=== PATIENT | female | born 1945 | race Caucasian/White ===

== ENCOUNTER 2017-05-26 12:03 | Emergency (ER) | payer MEDICARE, OTHER ==
[2017-05-26] MEDS ORDERED: HYDROcodone/Acetaminophen 7.5/325 mg Tablet ONE (13:25)
--- NOTE | 2017-05-26 14:26 | RAD ---
3 VIEWS OF THE RIGHT SHOULDER: Date: 05/26/17 COMPARISON: None. HISTORY: Right-sided shoulder pain for 2 weeks. FINDINGS: There is degenerative change involving the right AC joint. No evidence for glenohumeral joint disloca tion. No widening of the right AC or CC interspace. No fracture. IMPRESSION: Degenerative change of the right AC joint. No displaced fracture or evidence of dislocation seen. POS: [facility]
== END 2017-05-26 14:09 | disposition home or self-care (01) ==
LOC: ERS 12:03
DX: M75.91 Shoulder lesion, unspecified, right shoulder (principal); E03.9 Hypothyroidism, unspecified; E78.5 Hyperlipidemia, unspecified; F41.9 Anxiety disorder, unspecified; Z85.3 Personal history of malignant neoplasm of breast; Z92.21 Personal history of antineoplastic chemotherapy; Z87.891 Personal history of nicotine dependence

== ENCOUNTER 2017-12-08 14:00 | Outpatient (CLI) | payer MEDICARE, OTHER ==
[2017-12-08 15:04] LABS: Bilirubin Negative (Negative); Blood, Urine Negative (Negative); Clarity CLEAR (Clear); Glucose, Urine (Dipstick) Negative (Negative); Leukocyte Small (Negative); Nitrite Negative (Negative); Protein, Urine (Dipstick) Negative (Neg-Trace); Specific Gravity, Urine 1.025 (1.002-1.036); Urobilinogen 0.2 mg/dL (0.2-1.0); pH, Urine 5.5 (5.0-9.0)
[2017-12-08 15:05] LABS: #Eosinphils 0.1 thou/uL (0.0-0.7); #Lymphocytes 2.1 thou/uL (1.20-3.40); #Monocytes 0.5 thou/uL (0.11-0.59); #Neutrophils 3.6 thou/uL (1.40-6.50); %Basophils 0.2 % (0.0-1.0); %Eosinophils 2.2 % (0.0-10.0); %Monocytes 7.7 % (0.0-10.0); %Neutrophils 56.9 % (42.0-75.0); Hemoglobin 13.5 g/dL (12.0-16.0); Mean Corpuscular Hemoglobin 31.1 pg (27.0-31.0); Mean Corpuscular Volume 91.6 fl (81.0-99.0); Mean Platelet Volume 7.2 fL (7.4-10.4); Platelet Count 202 thou/uL (130-400); RBC Distribution Width 12.2 % (11.5-14.5); Red Blood Cell (RBC) Count 4.33 mill/uL (4.20-5.40); White Blood Cell (WBC) Count 6.4 thou/uL (4.8-10.8)
[2017-12-08 15:06] LABS: Bacteria/HPF None Seen HPF (None Seen); Hyaline Casts/LPF 0-3 HYALINE CAST LPF (0-3 Hyaline); Pathc Cast-AUWi Flag 0.43 (0-2.49); RBC/HPF 0-3 HPF (0-3); Squamous Epithelial 0-3 HPF (0-3)
[2017-12-08 15:23] LABS: Anion Gap 15 mmol/L (10-20); BUN (Urea Nitrogen) 15 mg/dL (9.8-20.1); Calc. Creatinine Clearance 0 mL/min (70-130); Calcium 9.7 mg/dL (7.8-10.44); Carbon Dioxide 25 mmol/L (23-31); Chloride 106 mmol/L (98-107); Estimated GFR-MDRD 77; Glucose 98 mg/dL (83-110); Potassium 4.2 mmol/L (3.5-5.1); Sodium 142 mmol/L (136-145)
--- NOTE | 2017-12-08 15:42 | RAD ---
CHEST TWO VIEWS: 12/08/17 HISTORY: Preop. COMPARISON: 03/29/05. FINDINGS: Cardiac silhouette and pulmonary vasculature are unremarkable. Mediastinum is midline with aortic aki cification. No confluent air space consolidation, pneumothorax or pleural fluid. Metallic clips overl ie the right breast. IMPRESSION: Atherosclerosis. No active cardiopulmonary abnormalities are otherwise demonstrated. POS: [facility]
== END 2017-12-08 14:01 | disposition home or self-care (01) ==
LOC: LABBT 14:00
PROVIDERS: ATTEND Orthopaedic Surgery
DX: Z01.818 Encounter for other preprocedural examination (principal); M17.12 Unilateral primary osteoarthritis, left knee; I70.0 Atherosclerosis of aorta
CPT/HCPCS: 71046; 80048; 81001; 85025; 85610; 87081; 93005; 93010

== ENCOUNTER 2017-12-15 11:38 | Outpatient (CLI) | payer MEDICARE, OTHER | END 2017-12-15 11:39 | disposition home or self-care (01) | LOC: LABBT 11:38 | PROVIDERS: ATTEND Orthopaedic Surgery | DX: Z01.818 Encounter for other preprocedural examination (principal); M17.12 Unilateral primary osteoarthritis, left knee | CPT/HCPCS: 86850; 86900; 86901 ==

== ENCOUNTER 2017-12-20 08:18 | Inpatient (IN) | payer MEDICARE, OTHER ==
[2017-12-08 14:11] VITALS: BMI 27.4
[2017-12-20] MEDS ORDERED: Sodium Chloride 0.9% 100 ML ONE (09:26)
[2017-12-20] MEDS ORDERED: CEFAZOLIN/Water 2 GM/20 ML SYRINGE ONE (09:26)
[2017-12-20] MEDS ORDERED: Fentanyl 100 MCG/2 ML VIAL ONE ×5 (09:37→13:57)
[2017-12-20] MEDS ORDERED: Midazolam HCl 2 mg/2 ml Vial ONE (09:37)
[2017-12-20] MEDS ORDERED: Ondansetron HCl/PF 4 MG/2 ML Vial IVP PRN ×3 (09:46→11:16)
[2017-12-20] MEDS ORDERED: Fentanyl 100 MCG/2 ML VIAL IV PRN (09:46)
[2017-12-20] MEDS ORDERED: Zolpidem Tartrate 5 MG TAB PO PRN ×2 (09:46→10:30)
[2017-12-20] MEDS ORDERED: Ketorolac Tromethamine 30 MG/ML VIAL IVP PRN (09:46)
[2017-12-20] MEDS ORDERED: Promethazine HCl 25 MG/ML VIAL IM PRN ×3 (09:46→11:16)
[2017-12-20] MEDS ORDERED: Bupivacaine 0.5% 50 ML in Sodium Chloride 0.9% 50 ML NERVE BLCK SCH (09:46)
[2017-12-20] MEDS ORDERED: traMADol HCl 50 MG TAB PO PRN ×2 (09:46→10:30)
[2017-12-20] MEDS ORDERED: HYDROcodone/Acetaminophen 7.5/325 mg Tablet PO PRN (09:47)
[2017-12-20] MEDS ORDERED: diphenhydrAMINE 25 MG CAP PO PRN (10:30)
[2017-12-20] MEDS ORDERED: Tranexamic Acid 1,000 MG in Sodium Chloride 0.9% 100 ML IVPB SCH (10:30)
[2017-12-20] MEDS ORDERED: Acetaminophen 325 MG TAB PO PRN (10:30)
[2017-12-20] MEDS ORDERED: Fentanyl 100 MCG/2 ML VIAL SLOW IVP PRN (10:30)
[2017-12-20] MEDS ORDERED: HYDROcodone/Acetaminophen 10/325 mg Tablet PO PRN ×2 (10:30)
[2017-12-20] MEDS ORDERED: Promethazine HCl 25 MG/ML VIAL SLOW IVP PRN (11:16)
[2017-12-20] MEDS ORDERED: PROPOFOL 200 MG/20 ML VIAL ONE (12:47)
[2017-12-20] MEDS ORDERED: Ondansetron HCl/PF 4 MG/2 ML Vial ONE (12:47)
[2017-12-20] MEDS ORDERED: Dexamethasone 20 MG/5 ML VIAL ONE (12:47)
--- NOTE | 2017-12-20 12:49 | OP ---
DATE OF PROCEDURE: 12/20/2017 PREOPERATIVE DIAGNOSIS: Degenerative joint disease left knee. POSTOPERATIVE DIAGNOSIS: Degenerative joint disease left knee. SURGEON: Neftaly Israel M.D. LUMBER RACKER: Cirilo Young PA-C. BLOOD LOSS: Minimal. SPECIMEN: None. DRAINS: None. COMPLICATIONS: None. TOURNIQUET TIME: 46 minutes. IMPLANTS USED: [place] [employer] 3 femur, 3 tibia, 9 mm CSX3 polyethylene, and A29 patella. TITLE OF PROCEDURE: Left total knee arthroplasty. PROCEDURE IN DETAIL: After informed consent was obtained in the preoperative holding area. The david ent was taken to the operative suite where general anesthesia was induced. Once adequate level of ge neral anesthesia was obtained, the patient was positioned and a well-padded tourniquet was placed bib und the left proximal thigh. The left lower extremity was then prepped and draped in the usual steri le fashion. Prior to exsanguination, a time out was called and all members of the surgical team agre ed upon site, surgeon, and patient. The extremity was then exsanguinated and the tourniquet was rais ed. A midline longitudinal incision was then made directly over the patella extending two fingerbrea dths above the superior pole of the patella and two fingerbreadths inferior to the inferior patellar pole of the patella. Deeper subcutaneous layers were dissected sharply and local bleeding was contro lled with Bovie electrocautery. A quad tendon longitudinal split was then made sharply and a median parapatellar arthrotomy was carried out both sharp and with Bovie electrocautery, carried down to one fingerbreadth medial to the tibial tubercle. The knee was then placed into flexion and the patella was everted nicely, and a copious fat pad ectomy was performed allowing for greater exposure of the t ibia. The computer-assisted distal femoral fiducial was then placed and pinned firmly, and the dista l femoral cutting guide was pinned firmly into place. The oscillating saw was then used to remove th e appropriate amount of bone. The 4-in-1 cutting block was then placed on the distal femur and the o scillating saw was used to remove the appropriate amount of bone off of the anterior, posterior, and chamfer cuts. After completion of bone cuts, the anterior cruciate ligament was resected sharply and the posterior cruciate ligament retractor was placed and the tibia was subluxed for better exposure. Partial meniscectomies were carried out, and the tibial computer-assisted fiducial was pinned, and the cutting guide was placed. Oscillating saw was then used to remove the bone with Hohmann retracto rs used to take care and protect the collateral ligaments. After the tibial resection was performed, a laminar manager nuclear was placed in between the freshened bone cuts. The knee placed at 90 degrees and further bilateral meniscectomies were carried out, and the curved osteotome and curettage was used t o remove any excess bone spurs in the posterior compartment. The trial femoral component, tibial bas eplate were placed with the appropriate polyethylene trial insert with an appropriate polyethylene sp acer and patellar button. The knee was taken through full range of motion with flexion and extension from 0-90 degrees and patellar broach squarely in the trochlea without any squinting or subluxation noted. The knee was also stable to varus and valgus stressing at 0, 15, 45, and 90 degrees of flexio n. The drawer was negative. All trial components were then removed and the keel punch was used to pr ovide the appropriate defect in the tibia with a mallet. The freshened bone cuts were copiously irri gated with pulsatile lavage of about 1-1/2 liters to remove all excess debris. The freshened bone cu ts were then dried and with suction and lap sponge. The knee was placed in flexion and retractors we re placed to provide access to all bone cuts. Tobramycin impregnated methyl methacrylate cement was then placed on the freshened bone cuts and implants which were malleted firmly into place. Curettage and Paloma elevators were used to remove any excess bone cement. The knee was placed into full exten radha and the patellar button was placed under compression, and the cement was allowed to cure. Once completed, the components were again taken through full range of motion and copious irrigation of the knee was carried out with another liter of normal saline. All components were inspected fully with full range of motion and varus and valgus stressing. There was no laxity noted and full extension was observed clinically. Primary closure was accomplished with #2 interrupted Vicryl stitch of the arth rotomy defect. This was oversewn with a #2 running Quill barbed stitch. The gravitational platelet system was then injected into the arthrotomy prior to closure. The subcutaneous layer was then close d with a running 0 barbed Monocryl stitch and skin closure accomplished with a running subcuticular 3 -0 Monocryl barbed Quill stitch and augmented with cement on the skin. Tourniquet was lowered. Good spontaneous return of distal pulses was noted clinically and a sterile dressing was applied to the i ncision. The procedure was terminated without any complications. The patient was awakened in the op erative suite and the tourniquet was removed, and the patient was taken to the recovery room in stabl e condition.
[2017-12-20] MEDS ORDERED: Bupivacaine 0.25% HCL 30 ML VIAL ONE (13:02)
[2017-12-20] MEDS ORDERED: Bupivacaine HCl 0.5%/Epinephrine 1:200,000/PF 30 ml Vial ONE (13:02)
[2017-12-20] MEDS ORDERED: Ketorolac Tromethamine 30 MG/ML VIAL ONE (13:08)
[2017-12-20] MEDS ORDERED: HYDROmorphone 0.5 MG/0.5 ML SYRINGE ONE (13:54)
--- NOTE | 2017-12-20 13:55 | RAD ---
THREE VIEWS LEFT KNEE: Date: 12-20-17 History: Left total knee prosthesis. FINDINGS: Post-surgical changes related to placement of a left total knee prosthesis are noted. No hardware com plication is seen. Subcutaneous edema is seen about the knee. There is no fracture or dislocation see n. IMPRESSION: Post-surgical changes related to recent placement of left total knee prosthesis. POS: [facility]
[2017-12-20] MEDS: Sodium Chloride 0.9% 1,000 ML IV SCH ×2 (15:14→21:52)
[2017-12-20] MEDS: HYDROcodone/Acetaminophen 7.5/325 mg Tablet PO PRN ×2 (15:21→21:54)
[2017-12-20] MEDS: CEFAZOLIN/Water 2 GM/20 ML SYRINGE SLOW IVP SCH (17:52)
[2017-12-20] MEDS: traMADol HCl 50 MG TAB PO PRN (18:11)
[2017-12-20] MEDS: Aspirin 81 mg Enteric Coated Tablet PO SCH (20:50)
[2017-12-20] MEDS: Famotidine 20 MG TAB PO SCH (20:50)
[2017-12-20] MEDS: Gabapentin 300 MG CAP PO SCH (20:50)
[2017-12-20] MEDS: cycloSPORINE 0.05% Ophthalmic Droperette EA EYE SCH ×2 (20:53→21:52)
--- NOTE | 2017-12-21 01:15 | CON ---
PRIMARY CARE PHYSICIAN: Dr. Ling PRIMARY TEAM: Dr. Jhonatan Clayton. REASON FOR CONSULTATION: Medical management. HISTORY OF PRESENT ILLNESS: This is a 72-year-old white female with severe osteoarthritis of the lef t knee who comes in for left total knee arthroplasty. Patient had surgery earlier today and is recup erating now in the room. She finished working with physical therapy and is doing well. No specific complaints at this time. PAST MEDICAL HISTORY: 1. Hyperlipidemia. 2. Hypothyroidism per the chart from 2013. The patient states that she does not know about this karma gnosis and is not taking any medicine currently. 3. Gastroesophageal reflux disease. PAST SURGICAL HISTORY: 1. Partial colectomy at age 40 for colon cancer without any spread or need for radiation or chemo. 2. Right breast lumpectomy 4 years ago for breast cancer followed by radiation and chemotherapy. 3. Bilateral cataract repair. SOCIAL HISTORY: The patient is . She does not smoke or use alcohol or illicit drugs. FAMILY HISTORY: Father had coronary artery disease and a CABG and macular degeneration. Mother had coronary artery disease and severe arthritis. PAST PSYCHIATRIC HISTORY: Depression. ALLERGIES: PREDNISONE causes tachycardia and upset stomach. CURRENT MEDICATIONS: 1. Glucosamine, vitamin D3 caplet 1 cap daily. 2. Fish oil 1000 mg capsule 2 caps daily. 3. Atorvastatin 40 mg daily. 4. Restasis 1 drop in each eye twice a day. 5. Flonase 2 sprays in each nostril daily. 6. Gabapentin 300 mg twice a day. 7. Prevacid 30 mg daily as needed. 8. Levothyroxine 50 mcg daily. 9. Loratadine 10 mg daily. 10. Ranitidine 150 mg twice a day as needed. 11. Zoloft 100 mg daily. 12. CoQ10 100 mg daily. REVIEW OF SYSTEMS: Constitutional: No fevers, no chills. Eyes: No double vision or blurred vision . ENT: She does have some seasonal allergy congestion and drainage. No sore throat. Cardiovascula r: No chest pain, no palpitations, or racing heart. Pulmonary: No coughing, wheezing, or shortness of breath. Gastrointestinal: No abdominal pain, no nausea or vomiting. No diarrhea or constipatio n. Genitourinary: No dysuria or hematuria. Musculoskeletal: She has arthritic pain in her left kn ee and also in her right shoulder. Skin: No rashes or lesions she has noted. Neurologic: No numbn ess, tingling, or focal weakness. PHYSICAL EXAMINATION: VITAL SIGNS: Blood pressure 136/75, pulse 86, respirations 16, O2 sat 93% on 2 liters, temperature 9 7.9. GENERAL: This is a well-developed elderly white female in no apparent distress. HEENT: Pupils equal, round, and reactive to light. Oropharynx clear without lesions, erythema or ex udate. NECK: Supple. No lymphadenopathy, no thyroid nodules or enlargement. HEART: Regular rate and rhythm. No murmurs, rubs, or gallops. LUNGS: Clear to auscultation bilaterally. No wheezes, crackles, or rhonchi. ABDOMEN: Soft, nontender to palpation, normoactive bowel sounds. No hepatosplenomegaly or other mas ses. EXTREMITIES: No clubbing, cyanosis, or edema. She does have a brace on her left knee and post-surgi aki dressing. SKIN: No rashes or lesions noted. NEUROLOGIC: She has intact strength in all extremities. No facial droop. LABORATORY DATA: CBC done 12 days ago was within normal limits. Coagulation profile was normal and her basic metabolic panel was normal. ASSESSMENT: 1. Severe osteoarthritis of the left knee, status post total knee arthroplasty, Dr. Israel is the olivares rgeon. 2. Hyperlipidemia. Resume patient's atorvastatin. 3. Hypothyroidism. Resume patient's levothyroxine. 4. Gastroesophageal reflux disease. Continue patient's PPI as needed. 5. Deep venous thrombosis prophylaxis as per surgical team. 6. Code status. I did discuss with the patient. She is a FULL CODE. Should she be incapacitated, her would be her medical power of estate attorney, his name is Reggie Perry.
[2017-12-21] MEDS: CEFAZOLIN/Water 2 GM/20 ML SYRINGE SLOW IVP SCH (02:49)
[2017-12-21] MEDS: HYDROcodone/Acetaminophen 7.5/325 mg Tablet PO PRN ×3 (03:50→13:30)
[2017-12-21 05:19] LABS: Hemoglobin 11.7 g/dL (12.0-16.0); Mean Corpuscular HGB CONC 33.1 g/dL (32.0-36.0); Mean Corpuscular Hemoglobin 30.7 pg (27.0-31.0); Mean Corpuscular Volume 92.7 fL (78.0-98.0); Mean Platelet Volume 7.1 fL (7.4-10.4); Platelet Count 184 thou/uL (130-400); RBC Distribution Width 12.2 % (11.5-14.5); Red Blood Cell (RBC) Count 3.81 mill/uL (4.20-5.40); White Blood Cell (WBC) Count 10.1 thou/uL (4.8-10.8)
[2017-12-21] MEDS: Ketorolac Tromethamine 30 MG/ML VIAL IVP SCH ×4 (06:26→23:45)
[2017-12-21] MEDS: Levothyroxine Sodium 50 MCG TAB PO SCH (06:27)
[2017-12-21] MEDS: Sodium Chloride 0.9% 1,000 ML IV SCH ×2 (07:33→15:21)
--- NOTE | 2017-12-21 09:04 | PRG ---
DATE OF SERVICE: 12/21/2017 SUBJECTIVE: Sarahi is a 72-year-old female postop day #1 left total knee arthroplasty by Dr. Israel. She is comfortable this morning and reports very little pain. She is tolerating regular p.o. intak e and voiding as well. She is able to ambulate back and forth to the bathroom with standby assist. OBJECTIVE: VITAL SIGNS: Temperature 98.1, pulse 82, respiratory rate 16, O2 saturation on room air is 92%, bloo d pressure 115/74. GENERAL: She is alert and oriented to person, place, time, and situation. Grossly nonfocal. EXTREMITIES: She is neurovascularly intact in both lower extremities. Hemoglobin and hematocrit are 11.7 and 35.3. ASSESSMENT: 1. A 72-year-old female postop day #1 left total knee arthroplasty. 2. Mild postoperative hemorrhagic anemia. PLAN: Continue current management, discharge tomorrow.
[2017-12-21] MEDS: Senokot S 8.6-50 MG TAB PO SCH ×2 (09:09→21:21)
[2017-12-21] MEDS: Aspirin 81 mg Enteric Coated Tablet PO SCH ×2 (09:10→21:21)
[2017-12-21] MEDS: Ubidecarenone 50 MG CAP PO SCH (09:10)
[2017-12-21] MEDS: Famotidine 20 MG TAB PO SCH ×2 (09:10→21:20)
[2017-12-21] MEDS: Loratadine 10 MG TAB PO SCH (09:10)
[2017-12-21] MEDS: Multivitamin W/ Minerals 1 TAB PO SCH (09:10)
[2017-12-21] MEDS: Ferrous Gluconate 324 MG TAB PO SCH ×2 (09:11→17:35)
[2017-12-21] MEDS: Gabapentin 300 MG CAP PO SCH ×2 (09:11→21:21)
[2017-12-21] MEDS: Atorvastatin Calcium 40 MG TAB PO SCH (09:11)
[2017-12-21] MEDS: cycloSPORINE 0.05% Ophthalmic Droperette EA EYE SCH ×2 (09:17→21:46)
[2017-12-21] MEDS: Fluticasone Propionate Nasal Spray 16 gm Bottle NASAL SCH (09:17)
--- NOTE | 2017-12-21 09:27 | PDOC.PN ---
- Subjective Encounter Start Date: 12/21/17 Encounter Start Time: 12:30 Subjective: Patient without complaint today. No N/V. Doing well with PT. - Objective Resuscitation Status: Resuscitation Status FULL:Full Resuscitation MAR Reviewed: Yes Vital Signs & Weight: Vital Signs (12 hours) Temp Pulse Resp BP BP Pulse Ox 12/21/17 07:40 98.1 F 82 16 115/74 92 L 12/21/17 03:10 97.9 F 82 16 117/76 93 L 12/20/17 23:58 98 F 85 16 120/66 91 L Weight Weight 160 lb I&O: 12/20/17 12/21/17 12/22/17 06:59 06:59 06:59 Intake Total 400 1960 Output Total 2300 1850 Balance -1900 110 Result Diagrams: 12/21/17 04:32 Phys Exam - Physical Examination Constitutional: NAD HEENT: moist MMs Respiratory: no wheezing, no rales, no rhonchi Cardiovascular: RRR, no significant murmur Gastrointestinal: soft, non-tender, positive bowel sounds left knee with dressing c/d/i Neurological: non-focal, moves all 4 limbs Psychiatric: normal affect, A&O x 3 Dx/Plan (1) Status post total left knee replacement Code(s): Z96.652 - PRESENCE OF LEFT ARTIFICIAL KNEE JOINT Status: Acute (2) Hyperlipidemia Code(s): E78.5 - HYPERLIPIDEMIA, UNSPECIFIED Status: Chronic (3) Hypothyroidism Code(s): E03.9 - HYPOTHYROIDISM, UNSPECIFIED Status: Chronic (4) GERD (gastroesophageal reflux disease) Code(s): K21.9 - GASTRO-ESOPHAGEAL REFLUX DISEASE WITHOUT ESOPHAGITIS Status: Chronic - Plan cont current plan of care, PT/OT * . - Discharge Day Encounter end time: 12:40
--- NOTE | 2017-12-21 14:28 | RAD ---
FOUR VIEWS OF THE LEFT KNEE: Comparison: None. History: Left knee pain after a fall. FINDINGS: Four views of the left knee shows no evidence of acute fracture or dislocation. No knee effusion is s een. Mild diffuse soft tissue swelling is seen. There appears to be air in the soft tissues. IMPRESSION: There appears to be air in the soft tissues. This could be secondary to infectious process or an open wound. Correlate with physical examination and white blood cell count. POS: [facility]
--- NOTE | 2017-12-21 17:17 | PRG ---
DATE OF SERVICE: 12/21/2017 TIME: 13:50 p.m. Was called to bedside by nursing staff. The patient apparently attempted to get out of a chair and t ried to get back in bed alone. Her was witnessed to the incident unfortunately and he was un able to catch her as she collapsed to the ground. She did have a little hyperflexion of the knee and upon my arrival, she had some bleeding and strikethrough under the dressing, but not profound. She was assisted back into the chair and ultimately back into bed by nursing staff. PHYSICAL EXAMINATION: She cannot straight leg raise, but her femoral block still intact. I do not f eel defect at the quadriceps tendon. Removal of the bandage reveals small opening of the superior as pect of the wound and little bit in the inferior aspect. I was able to get some Steri-Strips around this and pull the skin together effectively. No active bleeding was noted. She is neurovascularly i ntact in the extremity. IMAGING STUDIES: Four views of left knee demonstrate hardware to be intact. No periprosthetic fract ures are identified. ASSESSMENT: 1. A 72-year-old white female postop day #1 left total knee arthroplasty. 2. Status post unassisted witnessed fall. PLAN: Steri-Strips were applied to redress the wound. Notified Dr. Israel and we will reevaluate th e patient in the morning. For now, would like to reevaluate her quadriceps tendon when her block wea rs off.
[2017-12-22] MEDS: Sodium Chloride 0.9% 1,000 ML IV SCH ×3 (05:04→23:54)
[2017-12-22 05:39] LABS: Hemoglobin 10.9 g/dL (12.0-16.0); Mean Corpuscular HGB CONC 33.2 g/dL (32.0-36.0); Mean Corpuscular Hemoglobin 30.7 pg (27.0-31.0); Mean Corpuscular Volume 92.5 fL (78.0-98.0); Mean Platelet Volume 6.9 fL (7.4-10.4); Platelet Count 164 thou/uL (130-400); RBC Distribution Width 12.3 % (11.5-14.5); Red Blood Cell (RBC) Count 3.56 mill/uL (4.20-5.40)
[2017-12-22] MEDS: Levothyroxine Sodium 50 MCG TAB PO SCH (05:58)
[2017-12-22] MEDS: Ketorolac Tromethamine 30 MG/ML VIAL IVP SCH ×4 (05:59→23:52)
[2017-12-22] MEDS: HYDROcodone/Acetaminophen 7.5/325 mg Tablet PO PRN ×3 (06:08→16:15)
[2017-12-22] MEDS: traMADol HCl 50 MG TAB PO PRN ×2 (07:11→16:18)
[2017-12-22] MEDS: Ubidecarenone 50 MG CAP PO SCH (09:11)
[2017-12-22] MEDS: Gabapentin 300 MG CAP PO SCH ×2 (09:11→21:15)
[2017-12-22] MEDS: Atorvastatin Calcium 40 MG TAB PO SCH (09:11)
[2017-12-22] MEDS: Famotidine 20 MG TAB PO SCH ×2 (09:11→21:15)
[2017-12-22] MEDS: Aspirin 81 mg Enteric Coated Tablet PO SCH ×2 (09:11→21:15)
[2017-12-22] MEDS: Senokot S 8.6-50 MG TAB PO SCH ×2 (09:11→21:16)
[2017-12-22] MEDS: Ferrous Gluconate 324 MG TAB PO SCH ×2 (09:11→17:45)
[2017-12-22] MEDS: Loratadine 10 MG TAB PO SCH (09:12)
[2017-12-22] MEDS: Multivitamin W/ Minerals 1 TAB PO SCH (09:12)
[2017-12-22] MEDS: Fluticasone Propionate Nasal Spray 16 gm Bottle NASAL SCH (09:12)
[2017-12-22] MEDS: cycloSPORINE 0.05% Ophthalmic Droperette EA EYE SCH ×2 (10:14→21:16)
--- NOTE | 2017-12-22 15:16 | PDOC.PN ---
- Subjective Encounter Start Date: 12/22/17 Encounter Start Time: 15:15 Subjective: feels good. no new complaints -: feel yesterday but knee pain controlled -: walking w PT - Objective Resuscitation Status: Resuscitation Status FULL:Full Resuscitation MAR Reviewed: Yes Vital Signs & Weight: Vital Signs (12 hours) Temp Pulse Resp BP Pulse Ox 12/22/17 11:40 98.4 F 89 16 101/61 92 L 12/22/17 07:50 99.1 F 83 12 117/69 91 L 12/22/17 04:00 98.2 F 70 18 100/64 96 Weight Admit Weight 160 lb Weight 160 lb I&O: 12/21/17 12/22/17 12/23/17 06:59 06:59 06:59 Intake Total 400 3660 Output Total 2300 1850 Balance -1900 1810 Result Diagrams: 12/22/17 05:22 Additional Labs: labs reviewed Phys Exam - Physical Examination Constitutional: NAD HEENT: PERRLA, moist MMs, sclera anicteric, oral pharynx no lesions Neck: no nodes, no JVD, supple, full ROM Respiratory: no wheezing, no rales, no rhonchi, wheezing present, clear to auscultation bilateral Cardiovascular: RRR, no significant murmur, no rub Gastrointestinal: soft, non-tender, no distention, positive bowel sounds Musculoskeletal: no edema, pulses present Neurological: non-focal, normal sensation, moves all 4 limbs Psychiatric: normal affect, A&O x 3 Skin: no rash Dx/Plan (1) Status post total left knee replacement Code(s): Z96.652 - PRESENCE OF LEFT ARTIFICIAL KNEE JOINT Status: Acute (2) GERD (gastroesophageal reflux disease) Code(s): K21.9 - GASTRO-ESOPHAGEAL REFLUX DISEASE WITHOUT ESOPHAGITIS Status: Chronic (3) Hyperlipidemia Code(s): E78.5 - HYPERLIPIDEMIA, UNSPECIFIED Status: Chronic (4) Hypothyroidism Code(s): E03.9 - HYPOTHYROIDISM, UNSPECIFIED Status: Chronic - Plan plan discussed w/ family, DVT proph w/SCDs Hemodynamically stable. -: cont home meds as below. -: IM team will follow * . Review of Systems - Review of Systems Constitutional: negative: fever, chills, sweats, weakness, malaise, other ENT: negative: Ear Pain, Ear Discharge, Nose Pain, Nose Discharge, Nose Congestion, Mouth Pain, Mouth Swelling, Throat Pain, Throat Swelling, Other Respiratory: negative: Cough, Dry, Shortness of Breath, Hemoptysis, SOB with Excertion, Pleuritic Pain, Sputum, Wheezing Cardiovascular: negative: chest pain, palpitations, orthopnea, paroxysmal nocturnal dyspnea, edema, light headedness, other Gastrointestinal: negative: Nausea, Vomiting, Abdominal Pain, Diarrhea, Constipation, Melena, Hematochezia, Other Genitourinary: negative: Dysuria, Frequency, Incontinence, Hematuria, Retention , Other Musculoskeletal: negative: Neck Pain, Shoulder Pain, Arm Pain, Back Pain, Hand Pain, Leg Pain, Foot Pain, Other Neurological: negative: Weakness, Numbness, Incoordination, Change in Speech, Confusion, Seizures, Other - Medications/Allergies Allergies/Adverse Reactions: Allergies Allergy/AdvReac Type Severity Reaction Status Date / Time No Known Drug Allergies Allergy Verified 12/08/17 14:07 Medications: Current Medications Acetaminophen (Tylenol) 650 mg PO Q4H PRN PRN Reason: CARVER/ T > 101F; Mild Pain (1-3) Hydrocodone Bitart/Acetaminophen ([place] 7.5/325) 1 tab PO Q4H PRN PRN Reason: Mild Pain (1-3) Hydrocodone Bitart/Acetaminophen ([place] 7.5/325) 2 tab PO Q4H PRN PRN Reason: Moderate Pain (4-6) Last Admin: 12/22/17 10:18 Dose: 2 tab Aspirin (Ecotrin) 81 mg PO BID [facility] Last Admin: 12/22/17 09:11 Dose: 81 mg Atorvastatin Calcium (Lipitor) 40 mg PO DAILY [facility] Last Admin: 12/22/17 09:11 Dose: 40 mg Coenzyme Q10 (Coenzyme Q10) 100 mg PO DAILY [facility] Last Admin: 12/22/17 09:11 Dose: 100 mg Cyclosporine (Restasis) 0 ml EA EYE BID [facility] Last Admin: 12/22/17 10:14 Dose: 0.4 ml Diphenhydramine HCl (Benadryl) 25 mg PO Q6H PRN PRN Reason: Itching Famotidine (Pepcid) 20 mg PO BID [facility] Last Admin: 12/22/17 09:11 Dose: 20 mg Fentanyl (Sublimaze) 50 mcg IV Q1H PRN PRN Reason: BREAKTHROUGH PAIN Ferrous Gluconate (Fergon) 324 mg PO BID[facility] Last Admin: 12/22/17 09:11 Dose: 324 mg Fluticasone Propionate (Flonase Nasal [place]) 0 gm NASAL DAILY [facility] Last Admin: 12/22/17 09:12 Dose: Not Given Gabapentin (Neurontin) 300 mg PO BID [facility] Last Admin: 12/22/17 09:11 Dose: 300 mg Bupivacaine HCl 50 ml/ Sodium (Chloride) 100 mls @ 0 mls/hr NERVE BLCK INF [facility] PRN Reason: As Directed Last Admin: 12/21/17 21:15 Dose: 100 mls Sodium Chloride (Normal Saline 0.9%) 1,000 mls @ 100 mls/hr IV .Q10H [facility] Last Admin: 12/22/17 05:04 Dose: Not Given Iron/Minerals/Multivitamins (Theragran M) 1 tab PO DAILY [facility] Last Admin: 12/22/17 09:12 Dose: 1 tab Ketorolac Tromethamine (Toradol) 15 mg IVP Q6HR [facility] Stop: 12/23/17 06:01 Last Admin: 12/22/17 12:11 Dose: 15 mg Levothyroxine Sodium (Synthroid) 50 mcg PO 0600 [facility] Last Admin: 12/22/17 05:58 Dose: 50 mcg Loratadine (Claritin) 10 mg PO DAILY [facility] Last Admin: 12/22/17 09:12 Dose: 10 mg Ondansetron HCl (Zofran) 4 mg IVP Q6H PRN PRN Reason: Nausea/Vomiting Pantoprazole Sodium (Protonix) 40 mg PO DAILYPRN PRN PRN Reason: Indigestion Last Admin: 12/20/17 17:55 Dose: 40 mg Promethazine HCl (Phenergan) 12.5 mg IM Q4H PRN PRN Reason: Nausea/Vomiting Senna/Docusate Sodium (Senokot S) 2 tab PO BID [facility] Last Admin: 12/22/17 09:11 Dose: 2 tab Sertraline HCl (Zoloft) 100 mg PO DAILY [facility] Last Admin: 12/22/17 09:11 Dose: 100 mg Sodium Chloride (Flush - Normal Saline) 10 ml IVF Q12HR [facility] Last Admin: 12/22/17 09:12 Dose: 10 ml Sodium Chloride (Flush - Normal Saline) 10 ml IVF PRN PRN PRN Reason: Saline Flush Tramadol HCl (Ultram) 50 mg PO Q6H PRN PRN Reason: Mild Pain (1-3) Tramadol HCl (Ultram) 100 mg PO Q6H PRN PRN Reason: Moderate Pain 4-6 Last Admin: 12/22/17 07:11 Dose: 100 mg Zolpidem Tartrate (Ambien) 5 mg PO HSPRN PRN PRN Reason: Insomnia
[2017-12-23 05:19] LABS: Hemoglobin 10.2 g/dL (12.0-16.0); Mean Corpuscular HGB CONC 33.2 g/dL (32.0-36.0); Mean Corpuscular Hemoglobin 30.9 pg (27.0-31.0); Mean Corpuscular Volume 93.3 fL (78.0-98.0); Mean Platelet Volume 7.1 fL (7.4-10.4); Platelet Count 160 thou/uL (130-400); RBC Distribution Width 12.3 % (11.5-14.5); Red Blood Cell (RBC) Count 3.29 mill/uL (4.20-5.40); White Blood Cell (WBC) Count 6.7 thou/uL (4.8-10.8)
[2017-12-23] MEDS: Levothyroxine Sodium 50 MCG TAB PO SCH (06:21)
[2017-12-23] MEDS: Ketorolac Tromethamine 30 MG/ML VIAL IVP SCH (06:21)
[2017-12-23] MEDS: HYDROcodone/Acetaminophen 7.5/325 mg Tablet PO PRN (06:23)
[2017-12-23 07:47] VITALS: BP 116/74; TEMP 98.8
[2017-12-23] MEDS: Ferrous Gluconate 324 MG TAB PO SCH (09:07)
[2017-12-23] MEDS: Famotidine 20 MG TAB PO SCH (09:08)
[2017-12-23] MEDS: Aspirin 81 mg Enteric Coated Tablet PO SCH (09:08)
[2017-12-23] MEDS: Atorvastatin Calcium 40 MG TAB PO SCH (09:08)
[2017-12-23] MEDS: Ubidecarenone 50 MG CAP PO SCH (09:08)
[2017-12-23] MEDS: Loratadine 10 MG TAB PO SCH (09:09)
[2017-12-23] MEDS: cycloSPORINE 0.05% Ophthalmic Droperette EA EYE SCH (09:09)
[2017-12-23] MEDS: Senokot S 8.6-50 MG TAB PO SCH (09:09)
[2017-12-23] MEDS: Multivitamin W/ Minerals 1 TAB PO SCH (09:09)
[2017-12-23] MEDS: Gabapentin 300 MG CAP PO SCH (09:09)
[2017-12-23] MEDS: traMADol HCl 50 MG TAB PO PRN (09:12)
[2017-12-23] MEDS: Sodium Chloride 0.9% 1,000 ML IV SCH (10:33)
[2017-12-23] MEDS: Fluticasone Propionate Nasal Spray 16 gm Bottle NASAL SCH (10:34)
--- NOTE | 2017-12-23 14:19 | PDOC.PN ---
- Subjective Encounter Start Date: 12/23/17 Encounter Start Time: 14:17 Subjective: seen and examined at bedside.feels well. -: no F/C.mild dizziness.Discharged by primary team - Objective Resuscitation Status: Resuscitation Status FULL:Full Resuscitation MAR Reviewed: Yes Vital Signs & Weight: Vital Signs (12 hours) Temp Pulse Resp BP Pulse Ox 12/23/17 07:25 98.8 F 84 12 116/74 96 12/23/17 04:10 99 F 93 16 112/63 95 Weight Admit Weight 160 lb Weight 160 lb I&O: 12/22/17 12/23/17 12/24/17 06:59 06:59 06:59 Intake Total 3660 2242 Output Total 1850 Balance 1810 2242 Result Diagrams: 12/23/17 04:55 Additional Labs: Laboratory Tests 12/08/17 12/21/17 12/22/17 Unknown 04:32 05:22 Hgb 13.5 11.7 L 10.9 L 12/23/17 04:55 Hgb 10.2 L Phys Exam - Physical Examination Constitutional: NAD HEENT: PERRLA, moist MMs, sclera anicteric, oral pharynx no lesions Neck: no nodes, no JVD, supple, full ROM Respiratory: no wheezing, no rales, no rhonchi, clear to auscultation bilateral Cardiovascular: RRR, no significant murmur, no rub Gastrointestinal: soft, non-tender, no distention, positive bowel sounds Musculoskeletal: no edema, pulses present Neurological: non-focal, normal sensation, moves all 4 limbs Psychiatric: normal affect, A&O x 3 Skin: no rash Dx/Plan (1) Status post total left knee replacement Code(s): Z96.652 - PRESENCE OF LEFT ARTIFICIAL KNEE JOINT Status: Acute (2) GERD (gastroesophageal reflux disease) Code(s): K21.9 - GASTRO-ESOPHAGEAL REFLUX DISEASE WITHOUT ESOPHAGITIS Status: Chronic (3) Postoperative anemia Code(s): D64.9 - ANEMIA, UNSPECIFIED Status: Acute (4) Hyperlipidemia Code(s): E78.5 - HYPERLIPIDEMIA, UNSPECIFIED Status: Chronic (5) Hypothyroidism Code(s): E03.9 - HYPOTHYROIDISM, UNSPECIFIED Status: Chronic - Plan start Po Iron supplementation.scrpits given. -: recheck H/h in 1 month w PCP -: Ok to Dc from Im stand point. -: hemodynamically stable. -: no change in home meds-reviewed * . Review of Systems - Review of Systems Constitutional: negative: fever, chills, sweats, weakness, malaise, other Eyes: negative: Pain, Vision Change, Conjunctivae Inflammation, Eyelid Inflammation, Redness, Other ENT: negative: Ear Pain, Ear Discharge, Nose Pain, Nose Discharge, Nose Congestion, Mouth Pain, Mouth Swelling, Throat Pain, Throat Swelling, Other Respiratory: negative: Cough, Dry, Shortness of Breath, Hemoptysis, SOB with Excertion, Pleuritic Pain, Sputum, Wheezing Cardiovascular: negative: chest pain, palpitations, orthopnea, paroxysmal nocturnal dyspnea, edema, light headedness, other Gastrointestinal: negative: Nausea, Vomiting, Abdominal Pain, Diarrhea, Constipation, Melena, Hematochezia, Other Genitourinary: negative: Dysuria, Frequency, Incontinence, Hematuria, Retention , Other Musculoskeletal: negative: Neck Pain, Shoulder Pain, Arm Pain, Back Pain, Hand Pain, Leg Pain, Foot Pain, Other Neurological: negative: Weakness, Numbness, Incoordination, Change in Speech, Confusion, Seizures, Other - Medications/Allergies Allergies/Adverse Reactions: Allergies Allergy/AdvReac Type Severity Reaction Status Date / Time No Known Drug Allergies Allergy Verified 12/08/17 14:07
== END 2017-12-23 11:05 | disposition home or self-care (01) | DRG 470 ==
LOC: SDC 08:18 → SURG B 10:30
PROVIDERS: ADMIT Orthopaedic Surgery; ATTEND Orthopaedic Surgery
PROC: 0SRD0J9 Replacement of Left Knee Joint with Synthetic Substitute, Cemented, Open Approach (ICD-10-PCS; principal; 2017-12-20)
DX: M17.12 Unilateral primary osteoarthritis, left knee (principal); D62 Acute posthemorrhagic anemia; E78.5 Hyperlipidemia, unspecified; E03.9 Hypothyroidism, unspecified; K21.9 Gastro-esophageal reflux disease without esophagitis; Z79.899 Other long term (current) drug therapy; Z88.8 Allergy status to other drugs, medicaments and biological substances; Z85.038 Personal history of other malignant neoplasm of large intestine; F41.9 Anxiety disorder, unspecified; H91.90 Unspecified hearing loss, unspecified ear; M06.9 Rheumatoid arthritis, unspecified; Z90.49 Acquired absence of other specified parts of digestive tract; Z85.3 Personal history of malignant neoplasm of breast
CPT/HCPCS: 36415; 85027; A4216; C1713; C1776; G8978-GP-CK; G8979-GP-CI; J0670; J1100; J1170; J1885; J2250; J2405; J2704; J3010; J3370; J3490; J7050; S0020

== ENCOUNTER 2018-05-15 12:31 | Inpatient (IN) | payer MEDICARE, OTHER ==
[2018-05-15 13:14] LABS: #Basophils 0.1 thou/uL (0.0-0.2); #Lymphocytes 1.6 thou/uL (1.20-3.40); #Monocytes 0.9 thou/uL (0.11-0.59); #Neutrophils 13.3 thou/uL (1.40-6.50); %Basophils 0.7 % (0.0-1.0); %Eosinophils 0.3 % (0.0-10.0); %Lymphocytes 10.2 % (21.0-51.0); %Monocytes 5.9 % (0.0-10.0); %Neutrophils 82.9 % (42.0-75.0); Hemoglobin 12.2 g/dL (12.0-16.0); Mean Corpuscular HGB CONC 32.9 g/dL (32.0-36.0); Mean Corpuscular Hemoglobin 28.5 pg (27.0-31.0); Mean Corpuscular Volume 86.5 fL (78.0-98.0); Mean Platelet Volume 7.2 fL (7.4-10.4); Platelet Count 232 thou/uL (130-400); RBC Distribution Width 11.8 % (11.5-14.5); White Blood Cell (WBC) Count 16.1 thou/uL (4.8-10.8)
[2018-05-15 13:25] LABS: ALT (SGPT) 34 U/L (8-55); AST (SGOT) 19 U/L (5-34); Albumin 3.8 g/dL (3.4-4.8); Alkaline Phosphatase 67 U/L (40-150); Anion Gap 14 mmol/L (10-20); BUN (Urea Nitrogen) 10 mg/dL (9.8-20.1); Bilirubin, Total 0.6 mg/dL (0.2-1.2); Calc. Creatinine Clearance 0 mL/min (70-130); Calcium 8.9 mg/dL (7.8-10.44); Carbon Dioxide 22 mmol/L (23-31); Chloride 102 mmol/L (98-107); Estimated GFR-MDRD 75; Globulin 3.3 g/dL (2.4-3.5); Glucose 113 mg/dL (83-110); Potassium 3.1 mmol/L (3.5-5.1); Protein, Total 7.1 g/dL (6.0-8.3); Sodium 135 mmol/L (136-145)
[2018-05-15] MEDS ORDERED: Potassium Chloride 20 MEQ TAB ONE (13:39)
[2018-05-15 14:09] LABS: Lipase Less than 4 U/L (8-78)
[2018-05-15] MEDS ORDERED: metroNIDAZOLE 500 MG/100 ML BAG ONE (14:40)
--- NOTE | 2018-05-15 14:42 | CT ---
ABDOMEN AND PELVIC CT SCAN WITHOUT IV CONTRAST: Date: 05/15/18 HISTORY: 73-year-old female with history of abdominal pain with nausea and fever. Prior colon surgery. FINDINGS: Minimal Linear parenchymal changes in the lung bases, possibly some subsegmental atelectasis or mild chronic change. Fatty changes in the liver. The gallbladder demonstrates no overt gallbladder wall th ickening or pericholecystic abnormal fat stranding. No ductal dilatation. The pancreas, spleen, and a drenal glands appear unremarkable. No evidence for renal calculi or acute obstruction. There is noted to be some heterogeneous abnormal colonic wall thickening involving the upper right co ernestina, hepatic flexure region, transverse colon, and more prominent in the left colon, with some jericho lonic fat stranding in this region, evidence for nonspecific colitis, with possibilities including th at of infectious colitis, heterogenous colon inflammation, and even ischemia and ischemic colitis are possibilities. No CT evidence for acute appendicitis. No abscess or abnormal fluid collection. No ad enopathy. IMPRESSION: Fairly extensive abnormal colonic wall thickening, including the upper right colon, hepatic flexure, transverse colon, splenic flexure, and extending down the entire left colon, with some pericolonic fa t stranding, particularly around the left colon, evidence for nonspecific colitis, including infectio us and ischemic. Fatty changes in the liver. Mild linear stranding in the lung bases, nonspecific. St atus post hysterectomy. No other significant acute process. These changes in the colon are new when c ompared to the 05/24/17 study. POS: VIVIANA
[2018-05-15] MEDS ORDERED: Guaifenesin DM 100-10/5 ML UDCUP PO PRN (15:37)
[2018-05-15 15:55] VITALS: BMI 27.6
[2018-05-15] MEDS: Sodium Chloride 0.9% 1,000 ML IV SCH (18:00)
--- NOTE | 2018-05-15 19:53 | HP ---
DATE OF ADMISSION: 05/15/2018 REASON FOR ADMISSION: Acute gastroenteritis, dehydration. HISTORY OF PRESENT ILLNESS: The patient gives history of having diarrhea from 8 days. The frequency is getting worse to the point that she is having incontinence and is unable to even reach the bathroom now. The stool is watery , yellowish and foul-smelling. She is going more than 15 times per day. No blood in the stool. She is feeling a bit nauseated, but more than that, she has lost appetite and has not been eating or drinking from the last 2 days now. The patient had fever before this started, but none after that. No cough or expectoration. No complaints of chest pain or abdominal pain. PAST MEDICAL AND SURGICAL HISTORY: History of colon cancer diagnosed at the age of 40 years. She has had colonoscopy done every 5 years. She has had resection of her colon mass, dyslipidemia, breast cancer diagnosed in 2013 and has had lumpectomy, left total knee replacement, bilateral carpal tunnel surgery , MediPort placement and removal. CURRENT MEDICATIONS: Aspirin 81 mg daily, sertraline 100 mg daily and atorvastatin 40 mg daily. ALLERGIES: Allergic to LATEX and PREDNISONE. PERSONAL HISTORY: Does not abuse alcohol or drugs. No history of smoking. FAMILY HISTORY: Mother at the age of 89 years. She had history of dementia, otherwise of natural causes. Father at the age of 94 years. He has had a history of prostate cancer. CODE STATUS: Full. Power of senior attorney is her . REVIEW OF SYSTEMS: The following complete review of systems was negative, unless otherwise mentioned in the HPI or below: Constitutional: Weight loss or gain, ability to conduct usual activities. Skin: Rash, itching. Eyes: Double vision, pain. ENT/Mouth: Nose bleeding, neck stiffness, pain, tenderness. Cardiovascular: Palpitations, dyspnea on exertion, orthopnea. Respiratory: Shortness of breath, wheezing, cough, hemoptysis, fever or night sweats. Gastrointestinal: Poor appetite, abdominal pain, heartburn, nausea, vomiting, constipation, or diarrhea. Genitourinary: Urgency, frequency, dysuria, nocturia. Musculoskeletal: Pain, swelling. Neurologic/Psychiatric: Anxiety, depression. Allergy/Immunologic: Skin rash, bleeding tendency. PHYSICAL EXAMINATION: GENERAL: The patient is a 73-year-old female who is currently not in any acute distress. VITAL SIGNS: Blood pressure 110/70, pulse 110 per minute, respiratory rate 18 per minute, temperature 98.2 degrees Fahrenheit, saturating 98% on room air. NECK: Supple. No elevated JVD. HEENT: Extraocular muscles intact. Pupils reacting to light. Oral cavity, mucous membranes are dry. No exudates or congestion. CARDIOVASCULAR: S1, S2 heard. Regular rhythm. RESPIRATORY: Air entry 1+ bilaterally. No rales or rhonchi. ABDOMEN: Soft. Bowel sounds heard. No tenderness, rigidity or guarding. EXTREMITIES: No peripheral edema or calf tenderness. VASCULAR SYSTEM: Peripheral pulses 1+ bilateral. No ischemic ulcerations or gangrene. CENTRAL NERVOUS SYSTEM: No gross focal deficits noted. The patient is alert, awake and oriented well. PSYCHIATRIC: The patient's mood is euthymic. No hallucinations or delusions. LABORATORY AND X-RAY FINDINGS: White count of 16, H and H 12 and 37, platelet count 232,000, MCV is 86 with 82% neutrophils. Potassium is 3.1, serum bicarbonate 22, BUN 10, creatinine 0.7, glucose 113. Liver enzymes within normal limits. Lipase is less than 4. Albumin is 3.8. CT of the abdomen and pelvis done shows extensive abnormal colonic wall thickening including upper right colon, hepatic flexure, transverse colon, splenic flexure and extending down the entire left colon with some pericolonic fat stranding. CLINICAL IMPRESSION AND PLAN: The patient will be admitted to medical floor for acute gastroenteritis with moderate dehydration. She will be gently hydrated with normal saline at 100 mL per hour. We will obtain stool cultures x2, also for Clostridium difficile. The patient states she has not taken any recent antibiotics, but I see a recent urine culture drawn on 04/05/2018 and I am not sure if she received any antibiotics for her urinary tract infection then. In any case, she will have 2 stool samples for Clostridium difficile in view of the severity. We will also place her on Cipro and Flagyl. I have spoken to Dr. Parnell for Gastroenterology consultation. We will continue her aspirin, atorvastatin, Synthroid and sertraline as before. We will continue to closely monitor her on medical floor. [facility] HOSPITALNavdeep
--- NOTE | 2018-05-15 21:16 | CON ---
DATE OF CONSULTATION: 05/15/2018 HISTORY OF PRESENT ILLNESS: The patient is a 73-year-old female who was in her normal stat e of health until about a week prior to admission when she developed acute onset diarrhea. She repor ts abdominal crampy discomfort and 1 day of nausea or vomiting. She did not travel outside the [facility] and did not use any antibiotics recently. She had a knee replacement in December that was uneventful. She underwent a colonoscopy approximately 2-3 years ago at [facility] with Dr. Quijano and no abn ormalities were noted. She has a history of colorectal cancer. PAST MEDICAL HISTORY: Significant for hypothyroidism, hyperlipidemia, breast cancer. PAST SURGICAL HISTORY: Includes mastectomy, colon resection, knee replacement. ALLERGIES: No known medical allergies. SOCIAL HISTORY: Does not smoke or drink. MEDICATIONS: Include aspirin 81 mg p.o. daily, Zoloft 100 mg b.i.d., atorvastatin 40 mg p.o. daily. REVIEW OF SYSTEMS: CONSTITUTIONAL: Positive for fever or chills. Negative for weight loss. EYES: No blurred vision or double vision. ENT: No sore throat or earaches. CARDIOVASCULAR: No chest pa in or palpitation. PULMONARY: No shortness of breath, cough or wheezing. GASTROINTESTINAL: See ab ove. GENITOURINARY: No hematuria or dysuria. MUSCULOSKELETAL: No joint pain or muscle weakness. SKIN: No rashes. NEUROLOGIC: No numbness or seizure activity. PHYSICAL EXAMINATION: VITAL SIGNS: Shows temperature 98.8, pulse 90, respiratory rate 16, blood pressure 117/70. HEENT: Unremarkable. NECK: Supple. CHEST: Clear. CARDIOVASCULAR: Regular rate and rhythm. ABDOMEN: Soft and nontender without organomegaly or masses. Bowel sounds are present and normoactiv e. RECTAL: Deferred. EXTREMITIES: Normal. NEUROLOGIC: Nonfocal. LABORATORY DATA AND IMAGING DATA: Showed white blood cell count 16.1, hemoglobin 12, hematocrit 37.2 . Chemistry panel shows sodium 135, potassium 3.1, CO2 of 22, glucose 113. CT of the abdomen and pe lvis shows fairly extensive abnormal colonic wall thickening including upper right colon, hepatic fle xure, transverse colon, splenic flexure and standing down the entire left colon with some pericolonic fat stranding, particularly around the left colon. ASSESSMENT: Infectious colitis and hypokalemia. RECOMMENDATIONS: 1. Stool studies. 2. Antibiotic coverage including IV metronidazole. 3. IV hydration. 4. Clear liquid diet. 5. History of colon cancer.
[2018-05-15] MEDS: Acetaminophen 325 MG TAB PO PRN (21:26)
[2018-05-15] MEDS: Famotidine 20 MG TAB PO SCH (21:26)
[2018-05-15] MEDS: Ondansetron PF 4 MG/2 ML Vial IVP PRN (21:32)
[2018-05-15] MEDS: cycloSPORINE 0.05% Ophthalmic Droperette EA EYE SCH (21:35)
[2018-05-15] MEDS: metroNIDAZOLE 500 MG in Premix Bag 1 BAG IVPB SCH (21:37)
[2018-05-16 04:57] LABS: #Eosinphils 0.1 thou/uL (0.0-0.7); #Monocytes 0.9 thou/uL (0.11-0.59); #Neutrophils 13.8 thou/uL (1.40-6.50); %Eosinophils 0.6 % (0.0-10.0); %Lymphocytes 6.5 % (21.0-51.0); %Monocytes 5.7 % (0.0-10.0); %Neutrophils 87.2 % (42.0-75.0); Hemoglobin 11.5 g/dL (12.0-16.0); Mean Corpuscular Hemoglobin 29.3 pg (27.0-31.0); Mean Corpuscular Volume 91.4 fL (78.0-98.0); Mean Platelet Volume 7.4 fL (7.4-10.4); Platelet Count 238 thou/uL (130-400); RBC Distribution Width 12.3 % (11.5-14.5); Red Blood Cell (RBC) Count 3.92 mill/uL (4.20-5.40); White Blood Cell (WBC) Count 15.8 thou/uL (4.8-10.8)
[2018-05-16 05:03] LABS: Anion Gap 11 mmol/L (10-20); BUN (Urea Nitrogen) 9 mg/dL (9.8-20.1); Calc. Creatinine Clearance 78 mL/min (70-130); Calcium 8.1 mg/dL (7.8-10.44); Carbon Dioxide 21 mmol/L (23-31); Chloride 104 mmol/L (98-107); Estimated GFR-MDRD 79; Glucose 108 mg/dL (83-110); Potassium 3.4 mmol/L (3.5-5.1); Sodium 133 mmol/L (136-145)
[2018-05-16] MEDS: metroNIDAZOLE 500 MG in Premix Bag 1 BAG IVPB SCH ×3 (05:26→21:30)
[2018-05-16] MEDS: Levothyroxine Sodium 50 MCG TAB PO SCH (05:26)
[2018-05-16] MEDS: Sodium Chloride 0.9% 1,000 ML IV SCH ×3 (05:26→21:32)
[2018-05-16] MEDS: Acetaminophen 325 MG TAB PO PRN ×2 (05:26→14:31)
[2018-05-16] MEDS: Atorvastatin Calcium 40 MG TAB PO SCH (08:54)
[2018-05-16] MEDS: Aspirin 81 mg Enteric Coated Tablet PO SCH (08:54)
[2018-05-16] MEDS: Famotidine 20 MG TAB PO SCH ×2 (08:54→21:29)
[2018-05-16] MEDS: cycloSPORINE 0.05% Ophthalmic Droperette EA EYE SCH ×2 (08:55→21:30)
[2018-05-16] MEDS: Enoxaparin Sodium 40 MG/0.4 ML SYRINGE SC SCH (08:55)
--- NOTE | 2018-05-16 14:59 | EKG ---
Test Reason : ROUTINE Blood Pressure : / mmHG Vent. Rate : 089 BPM Atrial Rate : 089 BPM P-R Int : 156 ms QRS Dur : 160 ms QT Int : 458 ms P-R-T Axes : 038 034 -02 degrees QTc Int : 557 ms Poor data quality, interpretation may be adversely affected Normal sinus rhythm Right bundle branch block Abnormal ECG When compared with ECG of 08-DEC-2017 14:26, QT has lengthened Confirmed by DR. Angela LEMUS ([id number]) on 05/16/2018 2:58:48 PM Referred By: ESTELITA Confirmed By:DR. Angela LEMUS
[2018-05-16] MEDS ORDERED: Vancomycin HCl 25 MG/ML Oral PO SCH (17:45)
--- NOTE | 2018-05-16 17:45 | PDOC.PN ---
- Subjective Encounter Start Date: 05/16/18 Encounter Start Time: 17:43 Subjective: Diarrhea much better - Objective Resuscitation Status: Resuscitation Status FULL:Full Resuscitation Vital Signs & Weight: Vital Signs (12 hours) Temp Pulse Resp BP Pulse Ox 05/16/18 16:42 98.6 F 84 16 100/59 L 93 L 05/16/18 11:37 98.6 F 93 18 93 L 05/16/18 08:00 99.6 F 76 18 105/53 L 92 L Weight Admit Weight 156 lb 4.8 oz Weight 156 lb 4.8 oz Result Diagrams: 05/16/18 03:45 05/16/18 03:45 Phys Exam - Physical Examination HEENT: PERRLA, moist MMs, sclera anicteric, TM's clear, oral pharynx no lesions , 2+ tonsils Neck: no nodes, no JVD, supple, full ROM Respiratory: no wheezing, no rales, no rhonchi Cardiovascular: RRR, no significant murmur, no rub, gallop, irregular Gastrointestinal: soft, non-tender, no distention, positive bowel sounds Dx/Plan (1) Colitis Code(s): K52.9 - NONINFECTIVE GASTROENTERITIS AND COLITIS, UNSPECIFIED Status : Acute Comment: Continue IV abx - Plan cont current plan of care * .
--- NOTE | 2018-05-16 18:15 | PRG ---
DATE OF SERVICE: 05/16/2018 SUBJECTIVE: The patient is feeling much better. Her bowel movements have slowed down. She is havin g no nausea or vomiting. Her appetite is still poor, but she is tolerating liquids. OBJECTIVE: VITAL SIGNS: Temperature is 98.6, pulse 84, respiratory rate 16, blood pressure . HEENT: Unremarkable. NECK: Supple. CHEST: Clear. CARDIOVASCULAR: Regular rate and rhythm. ABDOMEN: Soft, nontender, without organomegaly or masses. LABORATORY DATA: Shows a white blood cell count of 15.8, hemoglobin 11.5, hematocrit of 35.8. Sodiu m is 133, potassium 3.4. Stool studies show C. diff antigen and toxin positive. ASSESSMENT: Clostridium difficile colitis. RECOMMENDATIONS: 1. Discontinue ciprofloxacin. 2. Continue IV metronidazole. 3. Begin p.o. vancomycin.
[2018-05-16] MEDS: Ondansetron PF 4 MG/2 ML Vial IVP PRN (18:28)
[2018-05-16] MEDS: Vancomycin HCl 25 MG/ML Oral PO SCH (21:48)
[2018-05-17] MEDS: Acetaminophen 325 MG TAB PO PRN (01:56)
[2018-05-17] MEDS: Levothyroxine Sodium 50 MCG TAB PO SCH (05:31)
[2018-05-17] MEDS: Sodium Chloride 0.9% 1,000 ML IV SCH (05:31)
[2018-05-17] MEDS: metroNIDAZOLE 500 MG in Premix Bag 1 BAG IVPB SCH (05:31)
[2018-05-17 08:02] VITALS: BP 102/66; TEMP 98
[2018-05-17] MEDS: Vancomycin HCl 25 MG/ML Oral PO SCH ×2 (10:01→13:22)
[2018-05-17] MEDS: Aspirin 81 mg Enteric Coated Tablet PO SCH (10:02)
[2018-05-17] MEDS: Atorvastatin Calcium 40 MG TAB PO SCH (10:02)
[2018-05-17] MEDS: Famotidine 20 MG TAB PO SCH (10:02)
[2018-05-17] MEDS: Enoxaparin Sodium 40 MG/0.4 ML SYRINGE SC SCH (10:03)
--- NOTE | 2018-05-17 11:51 | PRG ---
DATE OF SERVICE: 05/17/2018 SUBJECTIVE: The patient is feeling much better. Bowel movements have slowed down. She is toleratin g oral diet. OBJECTIVE: VITAL SIGNS: Temperature 98.0, pulse 80, respiratory rate 18, blood pressure 102/66. CHEST: Clear. CARDIOVASCULAR: Regular rate and rhythm. ABDOMEN: Soft, nontender, without organomegaly or masses. LABORATORY DATA: No new labs. ASSESSMENT: Clostridium difficile colitis -- improving. RECOMMENDATIONS: 1. Discontinue IV metronidazole. 2. Continue oral vancomycin for a total course of 10 days. 3. Advance diet. 4. Stable for discharge from gastrointestinal standpoint.
[2018-05-17] MEDS: cycloSPORINE 0.05% Ophthalmic Droperette EA EYE SCH (13:22)
--- NOTE | 2018-05-17 14:07 | PQF ---
CLINICAL DOCUMENTATION IMPROVEMENT CLARIFICATION FORM: ICD-10 Updated PLEASE DO AN ADDENDUM TO THE PROGRESS NOTE WITH ANY DOCUMENTATION UPDATES OR ADDITIONS AND CARRY THROUGH TO DC SUMMARY. THANK YOU. DATE: 05/17/18 ATTN: DR. RAMIREZ Please exercise your independent, professional judgment in responding to the clarification form. Clinical indicators are provided on the bottom of this form for your review Please check appropriate box(s) to clarify if the following diagnosis has been ruled in or ruled out: CLOSTRIDIUM DIFFICILE COLITIS [ ] Ruled in diagnosis [ ] Continue to treat [ ] Resolved [ ] Ruled out diagnosis [ ] Cannot rule out diagnosis [ ] Other diagnosis [ ] Unable to determine In addition, please specify: Present on Admission (POA): [ ] Yes [ ] No [ ] Unable to determine For continuity of documentation, please document condition throughout progress notes and discharge summary. Thank You. CLINICAL INDICATORS - SIGNS / SYMPTOMS / LABS PROGRESS NOTE 05/16 (HOSPITALIST): "COLITIS" PROGRESS NOTE 05/16 (GI): "CLOSTRIDIUM DIFFICILE" WBC 16.1 RISKS: WATERY, RUNNY STOOLS X 1 WEEK (ER NOTE) TREATMENT: IV LEVAQUIN (ER) IV FLAGYL (ER-05/17) IV VANCOMYCIN (05/16-PRESENT) IV FLUIDS (ER-PRESENT) STOOL CULTURES [employer] It Technical [employer] Winform Viewer(This form is maintained as a part of the permanent medical record) 2014 [employer]. All Rights Reserved [email or web address] Office: [phone] [facility]
--- NOTE | 2018-05-18 02:00 | DIS ---
DATE OF ADMISSION: 05/15/2018 DATE OF DISCHARGE: 05/17/2018 ADMISSION DIAGNOSES: 1. Diarrhea. 2. Colitis. DISCHARGE DIAGNOSIS: Clostridium difficile colitis. HISTORY OF PRESENT ILLNESS AND HOSPITAL COURSE: This is a 73-year-old female, who presented with unr elenting diarrhea and abdominal pain. She did not have any complaints of nausea or vomiting. The pa tient here was treated with IV antibiotics, and subsequently, the stool PCR showed C. diff positive. Patient was then switched to p.o. vancomycin, and as the patient was doing better, she was discharge d home to continue the p.o. vancomycin. DISCHARGE INSTRUCTIONS: 1. Advance diet as tolerated. 2. Activity: As tolerated. 3. Please follow up with the primary care physician. 4. Please continue all your home medication and also the p.o. vancomycin that was prescribed.
== END 2018-05-17 13:30 | disposition home or self-care (01) | DRG 373 ==
LOC: SCSER 12:31 → ERHOLD 14:12 → T4-B 15:10
PROVIDERS: ADMIT Internal Medicine; ATTEND Internal Medicine
DX: A04.72 Enterocolitis due to Clostridium difficile, not specified as recurrent (principal); E03.9 Hypothyroidism, unspecified; E78.5 Hyperlipidemia, unspecified; Z85.3 Personal history of malignant neoplasm of breast
CPT/HCPCS: 36415; 74176; 80048; 80053; 82274; 83605; 83690; 85025; 87040; 87045; 87046; 87324; 87449; 87493; 87899; 93005; 93010; 96361; 96365; J0744; J1650; J1956; J2405

== ENCOUNTER 2018-11-17 09:53 | Emergency (ER) | payer MEDICARE, OTHER ==
[2018-11-17] MEDS ORDERED: metroNIDAZOLE 500 MG TAB ONE (10:34)
[2018-11-17 10:41] LABS: #Basophils 0.1 thou/uL (0.0-0.2); #Eosinphils 0.1 thou/uL (0.0-0.7); #Monocytes 0.6 thou/uL (0.11-0.59); #Neutrophils 5.4 thou/uL (1.40-6.50); %Basophils 0.8 % (0.0-1.0); %Eosinophils 0.9 % (0.0-10.0); %Lymphocytes 24.3 % (21.0-51.0); %Monocytes 6.9 % (0.0-10.0); %Neutrophils 67.1 % (42.0-75.0); Hemoglobin 12.6 g/dL (12.0-16.0); Mean Corpuscular Volume 90.8 fL (78.0-98.0); Mean Platelet Volume 6.8 fL (7.4-10.4); Platelet Count 192 thou/uL (130-400); RBC Distribution Width 12.7 % (11.5-14.5)
[2018-11-17 10:52] LABS: ALT (SGPT) 24 U/L (8-55); AST (SGOT) 18 U/L (5-34); Albumin 4.3 g/dL (3.4-4.8); Alkaline Phosphatase 81 U/L (40-150); Anion Gap 13 mmol/L (10-20); BUN (Urea Nitrogen) 15 mg/dL (9.8-20.1); Bilirubin, Total 0.4 mg/dL (0.2-1.2); Calc. Creatinine Clearance 0 mL/min (70-130); Calcium 9.4 mg/dL (7.8-10.44); Carbon Dioxide 25 mmol/L (23-31); Chloride 108 mmol/L (98-107); Estimated GFR-MDRD 73; Globulin 3.3 g/dL (2.4-3.5); Glucose 105 mg/dL (83-110); Potassium 4.7 mmol/L (3.5-5.1); Protein, Total 7.6 g/dL (6.0-8.3); Sodium 141 mmol/L (136-145)
== END 2018-11-17 12:21 | disposition home or self-care (01) ==
LOC: SCSER 09:53
DX: A04.72 Enterocolitis due to Clostridium difficile, not specified as recurrent (principal); E03.9 Hypothyroidism, unspecified; E78.5 Hyperlipidemia, unspecified; F41.9 Anxiety disorder, unspecified; Z87.891 Personal history of nicotine dependence
CPT/HCPCS: 80053; 85025; 87324; 87328; 87329; 87449; 96360

== ENCOUNTER 2018-12-17 18:20 | Emergency (ER) | payer MEDICARE, OTHER ==
[2018-12-17 18:58] LABS: #Eosinphils 0.4 thou/uL (0.0-0.7); #Lymphocytes 1.8 thou/uL (1.20-3.40); #Monocytes 0.6 thou/uL (0.11-0.59); %Basophils 0.2 % (0.0-1.0); %Eosinophils 2.6 % (0.0-10.0); %Lymphocytes 12.7 % (21.0-51.0); %Monocytes 4.1 % (0.0-10.0); %Neutrophils 80.3 % (42.0-75.0); Mean Corpuscular HGB CONC 34.2 g/dL (32.0-36.0); Mean Corpuscular Hemoglobin 30.4 pg (27.0-31.0); Mean Corpuscular Volume 88.9 fL (78.0-98.0); Mean Platelet Volume 6.8 fL (7.4-10.4); Platelet Count 314 thou/uL (130-400); RBC Distribution Width 12.2 % (11.5-14.5); Red Blood Cell (RBC) Count 4.26 mill/uL (4.20-5.40); White Blood Cell (WBC) Count 13.7 thou/uL (4.8-10.8)
[2018-12-17 19:12] LABS: ALT (SGPT) 95 U/L (8-55); AST (SGOT) 67 U/L (5-34); Albumin 3.4 g/dL (3.4-4.8); Alkaline Phosphatase 75 U/L (40-150); Anion Gap 17 mmol/L (10-20); BUN (Urea Nitrogen) 18 mg/dL (9.8-20.1); Bilirubin, Total 0.8 mg/dL (0.2-1.2); Calc. Creatinine Clearance 0 mL/min (70-130); Calcium 9.3 mg/dL (7.8-10.44); Carbon Dioxide 25 mmol/L (23-31); Chloride 100 mmol/L (98-107); Estimated GFR-MDRD 69; Globulin 4.2 g/dL (2.4-3.5); Glucose 130 mg/dL (83-110); Protein, Total 7.6 g/dL (6.0-8.3); Sodium 139 mmol/L (136-145)
[2018-12-17 19:15] LABS: Lipase Less than 4 U/L (8-78); Potassium 2.8 mmol/L (3.5-5.1)
[2018-12-17] MEDS ORDERED: Potassium Chloride 20 MEQ/100 ML PREMIX BAG ONE (19:33)
[2018-12-17] MEDS ORDERED: NS 0.9% w/ 20 MEQ KCL 0 ML ONE (19:34)
[2018-12-17] MEDS ORDERED: D5 1/2 NS w/20 mEq KCL 0 ML ONE (19:35)
[2018-12-17] MEDS ORDERED: Labetalol HCl 100 MG/20 ML VIAL ONE (19:36)
[2018-12-17] MEDS ORDERED: NS 0.9% w/ 20 MEQ KCL 1,000 ML ONE (19:36)
--- NOTE | 2018-12-17 19:39 | CT ---
CT ABDOMEN AND PELVIS WITHOUT IV CONTRAST: INDICATIONS: Abdominal pain. Diarrhea. COMPARISON: CT abdomen and pelvis from 05/15/2018. TECHNIQUE: Multiple axial tomograms obtained through the abdomen and pelvis without IV enhancement. FINDINGS: The lung bases appear clear. The liver, spleen, and pancreas are unremarkable for an unenhanced study. The adrenal glands and kidneys are unremarkable. The urinary bladder is contracted. The small bowel loops are of normal caliber. Fluid-filled distention of the right colon with mild mural thickening is noted. Mild gaseous distent ion of the transverse colon. The left colon is nondistended. The aorta is of normal caliber. No free fluid. The pelvis structures are unremarkable. IMPRESSION: Colon distention, as described above, with mild mural thickening of the right colon. POS: VIVIANA
[2018-12-17] MEDS ORDERED: Potassium Chloride 20 MEQ TAB ONE (19:45)
[2018-12-17 21:10] LABS: Potassium 3.2 mmol/L (3.5-5.1)
== END 2018-12-17 22:23 | disposition home or self-care (01) ==
LOC: SCSER 18:20
DX: A04.72 Enterocolitis due to Clostridium difficile, not specified as recurrent (principal); E03.9 Hypothyroidism, unspecified; E78.5 Hyperlipidemia, unspecified; Z87.891 Personal history of nicotine dependence; F41.9 Anxiety disorder, unspecified; Z79.82 Long term (current) use of aspirin; Z79.899 Other long term (current) drug therapy
CPT/HCPCS: 36415; 74176; 80053; 83605; 83690; 85025; 87045; 87046; 87324; 87449; 87493; 87899; 96361; 96365; 96366; J3480

== ENCOUNTER 2022-01-26 06:48 | Day surgery (SDC) | payer MEDICARE, OTHER ==
[2022-01-22 11:31] VITALS: BMI 24.0
[~2022-01-26 06:48] MED LIST: EPINEPHrine 0.3 MG in Ophthalmic Irrigation Solution 500 ML IRR SCH
[2022-01-26] MEDS ORDERED: EPINEPHrine 0.3 MG in Ophthalmic Irrigation Solution 500 ML IRR SCH (07:00)
[2022-01-26] MEDS ORDERED: Cyclopentolate 1% Opth Drop 2 ML BOT ONE (07:16)
[2022-01-26] MEDS ORDERED: Phenylephrine 2.5% Ophth Soln 5 ML BOT ONE (07:16)
[2022-01-26] MEDS ORDERED: Midazolam HCl 2 mg/2 ml Vial ONE (07:26)
[2022-01-26] MEDS ORDERED: fentaNYL Citrate/PF 100 MCG/2 ML SYRINGE ONE (07:27)
[2022-01-26] MEDS ORDERED: PROPOFOL 200 MG/20 ML VIAL ONE (08:27)
[2022-01-26] MEDS ORDERED: Triamcinolone 40 MG/ML VIAL ONE (08:27)
[2022-01-26] MEDS ORDERED: Indocyanine Green 25 MG/10 ML VIAL ONE (08:27)
[2022-01-26] MEDS ORDERED: CEFAZOLIN 1 GM VIAL ONE (08:27)
[2022-01-26] MEDS ORDERED: Lidocaine 4% PF 5 ML AMP ONE (08:27)
[2022-01-26] MEDS ORDERED: Maxitrol 0.1% Opth Oint 3.5 GM TUBE ONE (08:27)
[2022-01-26] MEDS ORDERED: Bupivacaine 0.75% 10 ML VIAL ONE (08:27)
[2022-01-26] MEDS ORDERED: Lidocaine 1% PF 5 ML VIAL ONE (08:27)
== END 2022-01-26 10:15 | disposition home or self-care (01) ==
LOC: SDC 06:48
PROVIDERS: ATTEND Ophthalmology Retina Specialist
PROC: 08T53ZZ Resection of Left Vitreous, Percutaneous Approach (ICD-10-PCS; principal; 2022-01-26)
PROC: 08NF3ZZ Release Left Retina, Percutaneous Approach (ICD-10-PCS; 2022-01-26)
DX: H35.372 Puckering of macula, left eye (principal); Z79.2 Long term (current) use of antibiotics; Z79.890 Hormone replacement therapy; Z79.899 Other long term (current) drug therapy; Z91.040 Latex allergy status
CPT/HCPCS: J0171; J0690; J2250; J2704; J3301; J3490

== ENCOUNTER 2022-08-06 13:25 | Outpatient (CLI) | payer MEDICARE, OTHER ==
[2022-08-06 13:57] LABS: #Basophils 0.1 10x3/uL (0.0-0.2); #Eosinphils 0.2 10x3/uL (0.0-0.5); #Monocytes 0.5 10x3/uL (0.0-1.1); #Neutrophils 4.3 10x3/uL (1.5-8.4); %Basophils 0.7 % (0.0-2.0); %Eosinophils 2.7 % (0.0-6.0); %Lymphocytes 30.7 % (18.0-47.0); %Monocytes 6.8 % (0.0-10.0); %Neutrophils 58.8 % (40.0-75.0); Mean Corpuscular HGB CONC 33.6 g/dL (32.0-36.0); Mean Corpuscular Hemoglobin 30.7 pg (27.0-33.0); Mean Corpuscular Volume 91.3 fl (81.6-98.3); Platelet Count 215 10x3/uL (150-450); Red Blood Cell (RBC) Count 4.24 10x6/uL (3.90-5.03); White Blood Cell (WBC) Count 7.4 10x3/uL (3.5-10.5)
== END 2022-08-06 13:26 | disposition home or self-care (01) ==
LOC: LABBT 13:25
PROVIDERS: ATTEND Orthopaedic Surgery Hand Surgery
DX: Z01.812 Encounter for preprocedural laboratory examination (principal); G56.01 Carpal tunnel syndrome, right upper limb
CPT/HCPCS: 85025

== ENCOUNTER 2022-08-09 12:15 | Day surgery (SDC) | payer MEDICARE, OTHER ==
[2022-08-05 11:25] VITALS: BMI 24.0
[2022-08-09] MEDS ORDERED: Bacitracin Zinc Ointment 30 gm TUBE ONE (15:21)
[2022-08-09] MEDS ORDERED: Bupivacaine PF 0.5% 30 ML VIAL ONE (15:21)
[2022-08-09] MEDS ORDERED: fentaNYL PF 100 MCG/2 ML SYRINGE ONE (15:26)
[2022-08-09] MEDS ORDERED: Sodium Chloride 0.9% 100 ML ONE (15:38)
[2022-08-09] MEDS ORDERED: CEFAZOLIN 2 GM VIAL ONE (15:38)
[2022-08-09] MEDS ORDERED: Ketorolac Tromethamine 30 MG/ML VIAL ONE (15:44)
[2022-08-09] MEDS ORDERED: Ondansetron PF 4 MG/2 ML Vial ONE (15:44)
[2022-08-09] MEDS ORDERED: PROPOFOL 200 MG/20 ML VIAL ONE (15:44)
[2022-08-09] MEDS ORDERED: Lidocaine 1% PF 5 ML VIAL ONE (15:44)
[2022-08-09] MEDS ORDERED: Dexamethasone 20 MG/5 ML VIAL ONE (15:44)
[2022-08-09] MEDS ORDERED: ePHEDrine 50 MG/ML VIAL ONE (15:44)
== END 2022-08-09 17:30 | disposition home or self-care (01) ==
LOC: SDC 12:15
PROVIDERS: ATTEND Orthopaedic Surgery Hand Surgery
PROC: 01N50ZZ Release Median Nerve, Open Approach (ICD-10-PCS; principal; 2022-08-09)
DX: G56.01 Carpal tunnel syndrome, right upper limb (principal); G56.21 Lesion of ulnar nerve, right upper limb; M15.1 Heberden's nodes (with arthropathy); M75.101 Unspecified rotator cuff tear or rupture of right shoulder, not specified as traumatic; M48.02 Spinal stenosis, cervical region; E78.00 Pure hypercholesterolemia, unspecified; M06.9 Rheumatoid arthritis, unspecified; Z79.890 Hormone replacement therapy; Z79.899 Other long term (current) drug therapy; Z91.040 Latex allergy status
CPT/HCPCS: J1100; J1885; J2405; J2704; J3490; S0020